=== PATIENT | male | born 1940 | race Caucasian/White ===

== ENCOUNTER 2019-04-25 13:30 | Outpatient (CLI) | payer MEDICARE ==
[~2019-04-25 13:30] MED LIST: ASPI81TA45 PO; ATOR20TA37 PO; BACL20TA PO; CARB200T3 PO/NG; DIAZ10TA4 PO; DONE10TA7 PO; ENAL10TA PO; FLUT1DIS3 INH; HYDR1TAB13 PO; LEVO500T47 PO; METO25TA91 PO; METO50TA4 PO; NAPR220C2 PO; NAPR220T77 PO; NIAC500C3 PO; OMEP-110 PO; POLY17PO5 PO; SAW450CA7 PO; SIMV20TA PO; TAMS-11 PO; TICA90TA PO; TIOT18CA INH; TRIA1CAP3 PO
== END 2019-04-25 23:59 | disposition home or self-care (01) ==
LOC: CFH 13:30
PROVIDERS: ATTEND Nurse Practitioner Family
DX: J98.11 Atelectasis (principal); M47.814 Spondylosis without myelopathy or radiculopathy, thoracic region; R06.00 Dyspnea, unspecified; M95.4 Acquired deformity of chest and rib
CPT/HCPCS: 71046